=== PATIENT | male | born 1975 | race African-American/Black ===

== ENCOUNTER 2018-02-14 13:49 | Inpatient (IN) | payer OTHER ==
[~2018-02-14] VITALS: Ht 182.9 cm; Wt 91.2 kg
[2018-02-14 16:10] LABS: HEMATOCRIT. 34.3 % (42.0-52.0); HEMOGLOBIN. 11.2 g/dL (14.0-18.0); MEAN CORPUSCULAR HEMOGLOBIN 31.7 pg (28.0-32.0); MEAN PLATELET VOLUME 11.3 fl (7.4-10.4); PLATELET 68 x1000/uL (130-400); RED BLOOD CELL COUNT 3.53 mill/uL (4.7-6.1)
[2018-02-14 16:12] LABS: CHLORIDE 99 mEq/L (98-107)
[2018-02-14 16:13] LABS: INR 1.1; PROTHROMBIN TIME 11.2 sec (9.4-11.6)
[2018-02-14 16:27] LABS: PLATELET ESTIMATE DECREASED
[2018-02-15 09:00] VITALS: BP 114/80
[2018-02-15] MEDS ORDERED: LORAZEPAM 0.5MG TABLET PO PRN (09:00)
[2018-02-15] MEDS ORDERED: GUAIFENESIN 200MG/10ML SUGAR FREE UDC PO PRN (09:00)
[2018-02-15] MEDS ORDERED: NITROGLYCERIN 0.4MG TABLET SL SL PRN (09:00)
[2018-02-15] MEDS ORDERED: DIPHENHYDRAMINE 50MG/ML VIAL IV PRN (09:00)
[2018-02-15] MEDS ORDERED: DOCUSATE SODIUM 100MG CAPSULE PO PRN (09:00)
[2018-02-15] MEDS ORDERED: CLONIDINE 0.1MG TABLET PO PRN (09:00)
[2018-02-15] MEDS ORDERED: ONDANSETRON HCL 4MG/2ML VIAL IV PRN (09:00)
[2018-02-15] MEDS ORDERED: TRAMADOL 50MG TABLET PO PRN (09:00)
[2018-02-15] MEDS ORDERED: ACETAMINOPHEN 325MG TABLET PO PRN (09:00)
[2018-02-15] MEDS ORDERED: MAGNESIUM/ALUMINUM HYDROXIDE/SIMETHICONE 30ML UDC PO PRN (09:00)
[2018-02-15] MEDS: METOPROLOL TARTRATE 25MG TABLET PO SCH ×2 (10:06→21:00)
[2018-02-15] MEDS: ENOXAPARIN 30MG/0.3ML SYR SUBCUT SCH (10:24)
[2018-02-15] MEDS: GUAIFENESIN/DM 600MG/30MG ER TAB 12HR PO SCH ×2 (11:10→21:11)
[2018-02-15] MEDS: SEVELAMER CARBONATE 800 MG TABLET PO SCH ×4 (11:10→18:12)
[2018-02-15] MEDS: FAMOTIDINE 20MG/2ML VIAL IV SCH (11:10)
[2018-02-15] MEDS: PREDNISONE 20MG TABLET PO SCH (11:10)
[2018-02-15] MEDS: ASPIRIN 325MG EC TABLET PO SCH (11:10)
[2018-02-15 12:22] VITALS: BP 125/84
[2018-02-15] MEDS: CEFTRIAXONE 1 G PREMIX 50 ML IV SCH (12:47)
[2018-02-15 16:05] VITALS: BP 117/80
[2018-02-15] MEDS ORDERED: SEVE800T8 PO (17:10)
[2018-02-15] MEDS ORDERED: TENO150T PO (18:21)
[2018-02-15] MEDS ORDERED: DARU800T PO (18:21)
[2018-02-15] MEDS ORDERED: RITO100T PO (18:21)
[2018-02-15] MEDS ORDERED: LOSA25TA12 PO (18:21)
[2018-02-15] MEDS ORDERED: CINA30 PO (18:21)
[2018-02-15] MEDS ORDERED: EPIVIR PO (18:21)
[2018-02-15] MEDS ORDERED: ALBU6.7H INH (18:22)
[2018-02-15] MEDS ORDERED: DAPS100T PO (18:22)
[2018-02-15] MEDS ORDERED: BECL10.6 IH (18:28)
[2018-02-15] MEDS ORDERED: OMEP20CA10 PO (18:28)
[2018-02-15] MEDS ORDERED: ESCI5SOL2 PO (18:28)
[2018-02-15] MEDS ORDERED: DICY10CA88 PO (18:28)
[2018-02-15] MEDS ORDERED: HYDR30CR RC (18:28)
[2018-02-15] MEDS ORDERED: RIFA550T PO (18:28)
[2018-02-15] MEDS ORDERED: P50 PO (18:28)
[2018-02-15] MEDS ORDERED: DOLU50TA PO (18:28)
[2018-02-15] MEDS ORDERED: BISO5TAB13 PO (18:28)
[2018-02-15 20:00] VITALS: BP 110/78
[2018-02-15] MEDS ORDERED: ZOLPIDEM TARTRATE 5MG TABLET PO PRN (21:00)
[2018-02-16] VITALS: BP 124/71
[2018-02-16] MEDS: IPRATROPIUM/ALBUTEROL 0.5-3(2.5)MG/3ML NEB INH PRN ×3 (00:18→15:59)
[2018-02-16 04:31] VITALS: BP 107/53
[2018-02-16 06:33] LABS: HEMATOCRIT. 34.3 % (42.0-52.0); HEMOGLOBIN. 11.2 g/dL (14.0-18.0); MEAN CORPUSCULAR HEMOGLOBIN 31.7 pg (28.0-32.0); MEAN CORPUSCULAR VOLUME 96.7 fL (80.0-94.0); MEAN PLATELET VOLUME 11.1 fl (7.4-10.4); PLATELET 69 x1000/uL (130-400); RED BLOOD CELL COUNT 3.55 mill/uL (4.7-6.1); RED CELL DISTRIBUTION WIDTH 16.6 % (11.6-14.6)
[2018-02-16 06:50] LABS: CREATINE KINASE MB FRACTION 1.2 ng/mL (0.5-3.6); PHOSPHORUS 6.2 mg/dL (2.5-4.9)
[2018-02-16] MEDS: SEVELAMER CARBONATE 800 MG TABLET PO SCH ×3 (07:40→17:53)
[2018-02-16 08:12] VITALS: BP 126/89
[2018-02-16] MEDS: ENOXAPARIN 30MG/0.3ML SYR SUBCUT SCH (09:00)
[2018-02-16] MEDS: FAMOTIDINE 20MG/2ML VIAL IV SCH (09:21)
[2018-02-16] MEDS: METOPROLOL TARTRATE 25MG TABLET PO SCH ×2 (09:21→21:25)
[2018-02-16] MEDS: PREDNISONE 20MG TABLET PO SCH (09:21)
[2018-02-16] MEDS: ASPIRIN 325MG EC TABLET PO SCH (09:21)
[2018-02-16] MEDS: GUAIFENESIN/DM 600MG/30MG ER TAB 12HR PO SCH ×2 (09:21→21:25)
[2018-02-16 11:25] VITALS: BP_SYST 114; BP_SYST 126; BP_DIAS 73; BP_DIAS 89
[2018-02-16] MEDS: CEFTRIAXONE 1 G PREMIX 50 ML IV SCH (11:46)
[2018-02-16 13:08] LABS: PLATELET ESTIMATE DECREASED
[2018-02-16 16:00] VITALS: BP 121/86
[2018-02-16 20:00] VITALS: BP 130/85
== END 2018-02-16 23:40 | disposition short-term general hospital (02) | DRG 189 ==
LOC: ER 14:09 → 8WST 23:43 → ENRESERV 02-15 07:57
PROVIDERS: ADMIT Internal Medicine; ATTEND Internal Medicine
PROC: 5A1D70Z Performance of Urinary Filtration, Intermittent, Less than 6 Hours Per Day (ICD-10-PCS; principal; 2018-02-15)
DX: J96.01 Acute respiratory failure with hypoxia (principal); I13.2 Hypertensive heart and chronic kidney disease with heart failure and with stage 5 chronic kidney disease, or end stage renal disease; I47.2 Ventricular tachycardia; N18.6 End stage renal disease; D69.6 Thrombocytopenia, unspecified; J44.1 Chronic obstructive pulmonary disease with (acute) exacerbation; I50.33 Acute on chronic diastolic (congestive) heart failure; D63.8 Anemia in other chronic diseases classified elsewhere; Z99.2 Dependence on renal dialysis; Z82.49 Family history of ischemic heart disease and other diseases of the circulatory system
CPT/HCPCS: 36415; 71045; 80048; 80053; 80061; 82550; 82553; 83036; 83615; 83735; 83880; 84100; 84484; 85025; 85610; 85651; 87040; 93005; 93306; 93970; 94640; 99285; J0696; J1650; J3490; J7030; J7050; J7512; J7620

== ENCOUNTER 2019-03-13 03:50 | Inpatient (IN) | payer OTHER ==
[~2019-03-13] VITALS: Ht 182.9 cm; Wt 78.0 kg
[~2019-03-13 03:50] MED LIST: ALBU6.7H INH; BECL10.6 IH; BISO5TAB13 PO; CINA30 PO; DAPS100T PO; DARU800T PO; DICY10CA88 PO; DOLU50TA PO; EPIVIR PO; ESCI5SOL2 PO; HYDR30CR RC; LOSA25TA12 PO; OMEP20CA10 PO; P50 PO; RIFA550T PO; RITO100T PO; SEVE800T8 PO; TENO150T PO
[2019-03-13] MEDS ORDERED: ASPIRIN 81MG TABLET PO ONE (06:45)
[2019-03-13 07:46] LABS: HEMATOCRIT. 29.3 % (42.0-52.0); HEMOGLOBIN. 9.4 g/dL (14.0-18.0); MEAN CORPUSCULAR HEMOGLOBIN 32.1 pg (28.0-32.0); MEAN CORPUSCULAR VOLUME 99.4 fL (80.0-94.0); MEAN PLATELET VOLUME 9.9 fl (7.4-10.4); PLATELET 130 x1000/uL (130-400); RED BLOOD CELL COUNT 2.94 mill/uL (4.7-6.1); RED CELL DISTRIBUTION WIDTH 17.9 % (11.6-14.6)
[2019-03-13 07:50] LABS: CHLORIDE 102 mEq/L (98-107)
[2019-03-13] MEDS ORDERED: METRONIDAZOLE 500 MG PREMIX 100 ML IV ONE (08:00)
[2019-03-13 08:06] LABS: NUCLEATED RED BLOOD CELLS 4 /100 WBC
[2019-03-13 08:07] LABS: PLATELET ESTIMATE NORMAL
[2019-03-13 11:00] VITALS: BP 105/69
[2019-03-13 12:40] VITALS: BP 105/69
[2019-03-13 16:00] VITALS: BP 98/73
[2019-03-13] MEDS ORDERED: IPRATROPIUM/ALBUTEROL 0.5-3(2.5)MG/3ML NEB INH PRN (16:00)
[2019-03-13] MEDS ORDERED: ACETAMINOPHEN 325MG TABLET PO PRN (16:00)
[2019-03-13] MEDS ORDERED: LORAZEPAM 0.5MG TABLET PO PRN (16:00)
[2019-03-13] MEDS ORDERED: ONDANSETRON HCL 4MG/2ML INJ IV PRN (16:00)
[2019-03-13] MEDS ORDERED: CLONIDINE 0.1MG TABLET PO PRN (16:00)
[2019-03-13] MEDS ORDERED: INFLUENZA VIRUS VACCINE(AFLURIA) 0.5ML SYR IM ONE (16:30)
[2019-03-13] MEDS ORDERED: PNEUMOCOCCAL 23-VAL P-SAC VAC 0.5 ML IM ONE (16:30)
[2019-03-13] MEDS ORDERED: HYDROCODONE/ACETAMINOPHEN 5/325MG TABLET PO PRN (17:00)
[2019-03-13] MEDS ORDERED: VITA1CAP MT (19:48)
[2019-03-13 20:18] VITALS: BP 112/68
[2019-03-13] MEDS: PIPERACILLIN/TAZ 2.25G PREMIX 50 ML IV SCH (20:29)
[2019-03-13] MEDS: SODIUM CHLORIDE 0.9% INJ 3ML FLUSH IVF SCH (22:44)
[2019-03-14 00:17] VITALS: BP 100/62
[2019-03-14 04:00] VITALS: BP 94/64
[2019-03-14] MEDS: PIPERACILLIN/TAZ 2.25G PREMIX 50 ML IV SCH ×2 (05:12→18:00)
[2019-03-14] MEDS: SODIUM CHLORIDE 0.9% INJ 3ML FLUSH IVF SCH ×3 (05:13→21:20)
[2019-03-14 08:00] VITALS: BP 97/67
[2019-03-14 12:00] VITALS: BP 103/68
[2019-03-14 16:00] VITALS: BP 103/68
[2019-03-14 20:11] VITALS: BP 99/63
[2019-03-14] MEDS: DIPHENHYDRAMINE 50MG/ML VIAL IV PRN (20:35)
[2019-03-14] MEDS ORDERED: VALACYCLOVIR HCL 500MG TABLET PO SCH ×2 (21:00)
[2019-03-14] MEDS: CARVEDILOL 3.125 MG TABLET PO SCH (21:18)
[2019-03-15] VITALS: BP 95/63
[2019-03-15] MEDS: SODIUM CHLORIDE 0.9% INJ 3ML FLUSH IVF SCH ×2 (06:19→14:00)
[2019-03-15] MEDS: PIPERACILLIN/TAZ 2.25G PREMIX 50 ML IV SCH ×2 (06:28→17:35)
[2019-03-15 08:00] VITALS: BP 91/60
[2019-03-15] MEDS: CARVEDILOL 3.125 MG TABLET PO SCH (09:00)
[2019-03-15] MEDS ORDERED: DIGOXIN 125MCG TABLET PO SCH (09:00)
[2019-03-15] MEDS: DIPHENHYDRAMINE 50MG/ML VIAL IV PRN ×2 (09:05→17:44)
[2019-03-15 12:00] VITALS: BP 98/63
[2019-03-15 15:30] VITALS: BP 96/60
[2019-03-15 19:31] VITALS: BP 102/66
== END 2019-03-15 19:50 | disposition short-term general hospital (02) | DRG 291 ==
LOC: ER 03:50 → 6WST 09:08 → ENRESERV 09:57
PROVIDERS: ADMIT Internal Medicine; ATTEND Internal Medicine
PROC: 5A1D70Z Performance of Urinary Filtration, Intermittent, Less than 6 Hours Per Day (ICD-10-PCS; principal; 2019-03-13)
DX: I13.2 Hypertensive heart and chronic kidney disease with heart failure and with stage 5 chronic kidney disease, or end stage renal disease (principal); J18.9 Pneumonia, unspecified organism; I50.23 Acute on chronic systolic (congestive) heart failure; E43 Unspecified severe protein-calorie malnutrition; N18.6 End stage renal disease; I47.2 Ventricular tachycardia; B00.89 Other herpesviral infection; J98.8 Other specified respiratory disorders; L98.499 Non-pressure chronic ulcer of skin of other sites with unspecified severity; K52.9 Noninfective gastroenteritis and colitis, unspecified; F41.9 Anxiety disorder, unspecified; D63.8 Anemia in other chronic diseases classified elsewhere; D72.819 Decreased white blood cell count, unspecified; F12.90 Cannabis use, unspecified, uncomplicated; Z99.2 Dependence on renal dialysis; Z82.49 Family history of ischemic heart disease and other diseases of the circulatory system; Z68.23 Body mass index [BMI] 23.0-23.9, adult; Z88.8 Allergy status to other drugs, medicaments and biological substances; Z79.899 Other long term (current) drug therapy; Z79.52 Long term (current) use of systemic steroids; Z21 Asymptomatic human immunodeficiency virus [HIV] infection status
CPT/HCPCS: 36415; 71045; 83540; 83550; 83735; 83880; 84484; 87045; 87449; 87493; 90686; 90732; 93005; 93306; 93970; 96365; 97162; 99285; A6261; J1200; J2543; J3490; J7050; J7060

== ENCOUNTER 2019-12-18 13:47 | Emergency (ER) | payer OTHER ==
[~2019-12-18] VITALS: Ht 177.8 cm; Wt 60.0 kg
[~2019-12-18 13:47] MED LIST changes: -ALBU6.7H INH; +ALBU6.7H11 INH; -LOSA25TA12 PO; +LOSA25TA26 PO; -OMEP20CA10 PO; +OMEP20CA14 PO; +VITA1CAP MT
[2019-12-18] MEDS ORDERED: IPRATROPIUM BROMIDE (0.02%) 0.5MG/2.5ML NEB HHN STA (17:37)
[2019-12-18] MEDS ORDERED: ALBUTEROL (0.083%) 2.5MG/3ML NEB HHN STA (17:37)
[2019-12-18] MEDS ORDERED: ONDANSETRON HCL 4MG/2ML INJ IV STA (17:37)
[2019-12-18 18:26] LABS: BASOPHILS % 1.8 % (0.0-2.0); EOSINOPHILS % 1.3 % (0.0-5.0); HEMOGLOBIN. 13.1 g/dL (14.0-18.0); LYMPHOCYTES % 28.5 % (20.0-50.0); MEAN CORPUSCULAR HEMOGLOBIN 34.4 pg (28.0-32.0); MEAN CORPUSCULAR VOLUME 105.1 fL (80.0-94.0); MEAN PLATELET VOLUME 9.4 fl (7.4-10.4); MONOCYTES % 14.7 % (2.0-8.0); NEUTROPHILS % 53.7 % (40.0-76.0); PLATELET 119 x1000/uL (130-400); RED CELL DISTRIBUTION WIDTH 17.3 % (11.6-14.6)
[2019-12-18 18:29] LABS: CHLORIDE 102 mEq/L (98-107)
[2019-12-18] MEDS ORDERED: SODIUM CHLORIDE 0.9% 250 ML IV ONE (18:29)
[2019-12-18] MEDS ORDERED: FAMOTIDINE 20MG/2ML VIAL IV ONE (18:30)
[2019-12-18 18:33] LABS: ETHANOL BLOOD < 10 mg/dL
[2019-12-18] MEDS ORDERED: CALCIUM CHLORIDE 1GM/10ML SYR IV ONE (18:45)
[2019-12-18] MEDS ORDERED: SODIUM BICARBONATE 8.4% 1 MEQ/ML 50ML SYR IV ONE (18:45)
[2019-12-18] MEDS ORDERED: INSULIN REGULAR (HUMULIN R) 300UNITS/3ML IV ONE (18:45)
[2019-12-18] MEDS ORDERED: DEXTROSE 50% WATER 50ML SYRINGE IV ONE (18:45)
[2019-12-18] MEDS ORDERED: PIPERACILLIN/TAZ 3.375G PREMIX 50 ML IV ONE (20:30)
[2019-12-18] MEDS ORDERED: MORPHINE SULFATE 4 MG/ML CPJ (NOT FOR IM USE) IV ONE (21:15)
[2019-12-18] MEDS ORDERED: ONDANSETRON HCL 4MG/2ML INJ IV ONE (21:15)
[2019-12-18 22:32] VITALS: BP 96/90
== END 2019-12-19 00:29 | disposition short-term general hospital (02) ==
LOC: ER 13:47
DX: R10.84 Generalized abdominal pain (principal); R06.02 Shortness of breath; I12.0 Hypertensive chronic kidney disease with stage 5 chronic kidney disease or end stage renal disease; N18.6 End stage renal disease; Z99.2 Dependence on renal dialysis; E87.8 Other disorders of electrolyte and fluid balance, not elsewhere classified; F12.90 Cannabis use, unspecified, uncomplicated; Z79.899 Other long term (current) drug therapy
CPT/HCPCS: 36415; 71045; 74176; 80053; 80320; 83605; 83690; 83880; 84132; 84484; 85025; 87040; 93005; 94640; 96361; 96365; 96375; 99291; J1815; J2270; J2405; J2543; J3490; J7050; J7611; G0480